=== PATIENT | male | born 1970 | race Hispanic/Latino ===

== ENCOUNTER 2023-05-18 16:01 | Emergency (ER) | payer OTHER, SELFPAY ==
--- NOTE | ~2023-05-18 | XR_ITS ---
EXAMINATION: XR hand LT min 3V DATE: 05/18/2023 16:28 INDICATION: Left hand pain post injury TECHNIQUE: Posteroanterior, oblique and lateral views of the left hand were obtained. COMPARISON: None. FINDINGS: Alignment is normal. No fracture. Joint spaces are normal. Soft tissues are unremarkable. IMPRESSION: 1. Negative left hand radiographs. Reviewed, dictated and finalized at location A.
[2023-05-18 16:15] VITALS: BP 122/73; PULSE 58; RESP 16; TEMP 36.8; O2SAT 99
[2023-05-18 16:44] VITALS: BP 122/73; PULSE 58; RESP 16; TEMP 36.8; O2SAT 99
--- NOTE | 2023-05-18 17:21 | ED.UPPEXIN ---
HPI - Extremity Injury (Upper) General Chief Complaint: Extremity Injury, Upper Stated Complaint: left hand injury Time Seen by Provider: 05/18/23 16:15 Source: patient Mode of arrival: ambulatory Limitations: no limitations History of Present Illness HPI narrative: Reuben is a 52-year-old male patient presenting to the clinic today with complaints of a left hand injury. He reports that he was carrying a TV and dropped on his hand. His hand got smashed between the TV and table. Has a laceration to the palmar aspect of the left hand. Related Data Home Medications Medication Instructions Recorded Confirmed atorvastatin 20 mg tablet mg 05/18/23 Allergies Allergy/AdvReac Type Severity Reaction Status Date / Time No Known Allergies Allergy Verified 05/18/23 16:14 Review of Systems Review of Systems: Pertinent positives per HPI. Patient denies any fever, chills, rash, headache, visual changes, dizziness, cough, runny nose, sore throat, shortness of breath, chest pain, palpitations, nausea, vomiting, diarrhea, constipation, abdominal pain, or any urinary issues. PMFSH Comments At the time of my signature, I reviewed and agree with the nursing past medical, surgical, social, and family history. There is no relevant family history pertinent to the patient complaint. Exam Narrative: General: Well-developed, well nourished, in no apparent distress Head: Normocephalic, atraumatic. Cardio: Regular rate and rhythm, s1 and s2 normal, no murmur appreciated. Resp: Clear to auscultation bilaterally, no rhonchi, rales, wheezing or rubs. Integumentary: [place], warm, and dry, intact without lesion, 2 cm laceration to the palmar aspect of the left hand Course Course Emergency Course: Portions of this record may have been created with voice recognition software. Level of Care: Express Care Visit Vital Signs Vital signs: Vital Signs Temperature 36.8 C 05/18/23 16:15 Pulse Rate 58 L 05/18/23 16:15 Respiratory Rate 16 05/18/23 16:15 Blood Pressure 122/73 05/18/23 16:15 Pulse Oximetry 99 05/18/23 16:15 Oxygen Delivery Room Air 05/18/23 16:15 Temperature 36.8 C 05/18/23 16:44 Pulse Rate 58 L 05/18/23 16:44 Respiratory Rate 16 05/18/23 16:44 Blood Pressure 122/73 05/18/23 16:44 Pulse Oximetry 99 05/18/23 16:44 Oxygen Delivery Room Air 05/18/23 16:44 Vital signs reviewed Procedures Laceration Laceration 1: Date: 05/18/23 Site: hand Side (If applicable): left Size (cm): 2 Description: linear Depth: simple, single layer Local Anesthetic: lidocaine 1% Amount of anesthesia used (mL): 2 Pre-repair: wound explored and irrigated ====== Skin Level ====== Skin layer closed with: nylon Size (cm): 4-0 Number of sutures: 3 Technique: simple, interrupted ====== Subcutaneous Layer ====== ====== Muscle Layer ====== ====== Tendon Layer ====== Dressing: Verbal consent obtained for laceration repair. Risk and benefits explained and patient voiced understanding. Area was cleansed with antiseptic skin wash and a 25 gauge needle was then used to instill (2) ml of 1% lidocaine without epi into the wound edges. Area was prepped and draped using sterile technique. A 4-0 suture on a p needle was used to place (3) interrupted sutures bringing the wound edges together- well approximated. Patient tolerated procedure well. Sterile dressing applied. MDM - Extremity Injury (Upper) MDM Narrative Medical decision making narrative: At the time of visit patient is resting comfortably on the exam table. X-ray of the left hand was performed was negative for any sign of fracture or malalignment. 2 cm vertical laceration to the left palm was closed using 4-0 suture. Three interrupted sutures placed to close wound. Patient tolerated procedure well. Supportive measures were discussed w
[2023-05-18] MEDS: TETANUS,DIPHTHERIA,AC PERTUSSIS ADULT (0.5 ML) BOOSTRIX IM (17:37)
== END 2023-05-18 17:45 | disposition home or self-care (01) ==
PROVIDERS: Emergency Provider Nurse Practitioner Family
DX: S69.92XA Unspecified injury of left wrist, hand and finger(s), initial encounter (principal); S61.412A Laceration without foreign body of left hand, initial encounter; Z23 Encounter for immunization; W22.8XXA Striking against or struck by other objects, initial encounter
CPT/HCPCS: 12001; 73130; 90471; 90715; 99213; G0463